=== PATIENT | male | born 1985 | race Caucasian/White ===

== ENCOUNTER 2020-01-23 00:17 | Emergency (ER) | payer SELFPAY ==
[2020-01-23] MEDS ORDERED: HYDROmorphone 0.5 MG/0.5 ML Syringe IVPUSH ONE ×2 (00:54→03:31)
[2020-01-23] MEDS ORDERED: Ondansetron 4 MG/2 ML SDV IVPUSH ONE ×2 (00:54→01:48)
--- NOTE | 2020-01-23 00:54 | EDM.PDOC ---
ED HPI GENERAL MEDICAL PROBLEM - General Chief Complaint: Abdominal Pain Stated Complaint: ABD PAIN Time Seen by Provider: 01/23/20 00:46 Source of Information: Reports: Patient History Limitations: Reports: No Limitations - History of Present Illness INITIAL COMMENTS - FREE TEXT/NARRATIVE: pt started to vomit on Sunday and at this point he is not holding anything down. He feels very dehydrated. He has not been having diarrhea. He has lower abdomanal pain. He has not had chilling. He feels very weak. He has not noted anything in the emesis like blood. Onset: Gradual, Other ( started on Sunday. ) Duration: Hour(s): Location: Reports: Abdomen Associated Symptoms: Reports: Loss of Appetite, Nausea/Vomiting, Weakness Abdominal Pain Score (Numeric/FACES): 7 - Related Data Allergies Allergy/AdvReac Type Severity Reaction Status Date / Time No Known Allergies Allergy Verified 09/18/13 20:12 Home Meds: Home Meds NK [No Known Home Meds] 09/18/13 [History] Past Medical History - Past Health History Medical/Surgical History: Denies Medical/Surgical History - Infectious Disease History Infectious Disease History: Reports: Chicken Pox Social & Family History - Tobacco Use Smoking Status *Q: Current Every Day Smoker Years of Tobacco use: 15 Packs/Tins Daily: 5 - Recreational Drug Use Recreational Drug Use: Yes Drug Use in Last 12 Months: Yes Recreational Drug Type: Reports: Marijuana/Hashish Recreational Drug Use Frequency: Daily ED ROS GENERAL - Review of Systems Review Of Systems: See Below Constitutional: Reports: Weakness, Decreased Appetite HEENT: Reports: No Symptoms Respiratory: Reports: No Symptoms Cardiovascular: Reports: No Symptoms Endocrine: Reports: No Symptoms GI/Abdominal: Reports: Abdominal Pain, Other (pt has pain in his lower abdoman. ) : Reports: No Symptoms Musculoskeletal: Reports: No Symptoms Skin: Reports: No Symptoms ED EXAM, GI/ABD - Physical Exam Exam: See Below Text/Narrative:: pt arrived with lower abdomanal pain. He has been vomiting since sunday and has not held anything down. He has not had diarrhea. He feels very weak. Exam Limited By: No Limitations General Appearance: Alert, Anxious, Moderate Distress Ears: Normal TMs Nose: Normal Inspection Throat/Mouth: Other (mouth is very dry. ) Head: Atraumatic Neck: Normal Inspection Respiratory/Chest: No Respiratory Distress Cardiovascular: Regular Rate, Rhythm GI/Abdominal Exam: Tender, Other (pt is tender in the rt lower abdoman and periumbilical area. ) (Male) Exam: Deferred Rectal (Males) Exam: Deferred Back Exam: Other (pt has itching on his back. ) Extremities: Normal Inspection Neurological: Alert, Oriented, Normal Cognition Psychiatric: Anxious Course - Vital Signs Last Recorded V/S: Last Vital Signs Temp 37.1 C 01/23/20 00:33 Pulse 61 01/23/20 03:13 Resp 17 01/23/20 03:13 BP 131/84 01/23/20 03:13 Pulse Ox 99 01/23/20 03:13 - Orders/Labs/Meds Orders: Active Orders 24 hr Category Date Time Status Abdomen 2V AP Flat Upright [CR] Stat Exams 01/23/20 03:31 Taken Sodium Chloride 0.9% [Normal Saline] 1,000 ml Med 01/23/20 01:00 Active IV ASDIRECTED Sodium Chloride 0.9% [Normal Saline] 1,000 ml Med 01/23/20 02:00 Active IV ASDIRECTED Sodium Chloride 0.9% [Normal Saline] 1,000 ml Med 01/23/20 02:30 Active IV ASDIRECTED Medication Orders Sodium Chloride (Normal Saline) 1,000 mls @ 999 mls/hr IV ASDIRECTED HERLINDA Last Admin: 01/23/20 00:59 Dose: 999 mls/hr Sodium Chloride (Normal Saline) 1,000 mls @ 999 mls/hr IV ASDIRECTED HERLINDA Last Admin: 01/23/20 01:54 Dose: 999 mls/hr Sodium Chloride (Normal Saline) 1,000 mls @ 999 mls/hr IV ASDIRECTED HERLINDA Last Admin: 01/23/20 02:45 Dose: 999 mls/hr Labs: Laboratory Tests 01/23/20 01/23/20 01/23/20 Range/Units 00:46 00:56 00:56 WBC 11.5 H (4.5-11.0) K/uL RBC 5.15 (4.30-5.90) M/uL Hgb 15.2 H (12.0-15.0) g/dL Hct 46.3 (40.0-54.0) % MCV 90 (80-98) fL MCH 30 (27-31) pg MCHC 33 (32-36) % Plt Count 518 H (150-400) K/uL Neut % (Auto) 81 H (36-66) % Lymph % (Auto) 12 L (24-44) % [place] % (Auto) 7 H (2-6) % Eos % (Auto) 0 L (2-4) % Baso % (Auto) 0 (0-1) % Sodium 140 (140-148) mmol/L Potassium 3.5 L (3.6-5.2) mmol/L Chloride 99 L (100-108) mmol/L Carbon Dioxide 32 (21-32) mmol/L Anion Gap 12.5 (5.0-14.0) mmol/L BUN 15 (7-18) mg/dL Creatinine 1.1 (0.8-1.3) mg/dL Est Cr Clr Drug Dosing 91.55 mL/min Estimated GFR (MDRD) > 60 (>60) Glucose 108 H (74-106) mg/dL Calcium 8.9 (8.5-10.1) mg/dL Total Bilirubin 0.5 (0.2-1.0) mg/dL AST 17 (15-37) U/L ALT 22 (12-78) U/L Alkaline Phosphatase 72 (46-116) U/L C-Reactive Protein 0.36 H (0.0-0.3) mg/dL Total Protein 7.5 (6.4-8.2) g/dL Albumin 4.1 (3.4-5.0) g/dL Globulin 3.4 (2.3-3.5) g/dL Albumin/Globulin Ratio 1.2 (1.2-2.2) Amylase (25-115) U/L Lipase (73-393) U/L Urine Color (YELLOW) Urine Appearance (CLEAR) Urine pH (5.0-8.0) Ur Specific [place] (1.008-1.030) Urine Protein (NEGATIVE) mg/dL Urine Glucose (UA) (NEGATIVE) mg/dL Urine Ketones (NEGATIVE) mg/dL Urine Occult Blood (NEGATIVE) Urine Nitrite (NEGATIVE) Urine Bilirubin (NEGATIVE) Urine Urobilinogen (0.2-1.0) EU/dL Ur Leukocyte Esterase (NEGATIVE) Urine RBC (0-5) Urine WBC (0-5) Ur Epithelial Cells Amorphous Sediment Urine Bacteria Urine Mucus 01/23/20 01/23/20 01/23/20 Range/Units 01:02 01:13 02:00 WBC (4.5-11.0) K/uL RBC (4.30-5.90) M/uL Hgb (12.0-15.0) g/dL Hct (40.0-54.0) % MCV (80-98) fL MCH (27-31) pg MCHC (32-36) % Plt Count (150-400) K/uL Neut % (Auto) (36-66) % Lymph % (Auto) (24-44) % [place] % (Auto) (2-6) % Eos % (Auto) (2-4) % Baso % (Auto) (0-1) % Sodium (140-148) mmol/L Potassium (3.6-5.2) mmol/L Chloride (100-108) mmol/L Carbon Dioxide (21-32) mmol/L Anion Gap (5.0-14.0) mmol/L BUN (7-18) mg/dL Creatinine (0.8-1.3) mg/dL Est Cr Clr Drug Dosing mL/min Estimated GFR (MDRD) (>60) Glucose (74-106) mg/dL Calcium (8.5-10.1) mg/dL Total Bilirubin (0.2-1.0) mg/dL AST (15-37) U/L ALT (12-78) U/L Alkaline Phosphatase (46-116) U/L C-Reactive Protein (0.0-0.3) mg/dL Total Protein (6.4-8.2) g/dL Albumin (3.4-5.0) g/dL Globulin (2.3-3.5) g/dL Albumin/Globulin Ratio (1.2-2.2) Amylase 55 (25-115) U/L Lipase 84 (73-393) U/L Urine Color Yellow (YELLOW) Urine Appearance Clear (CLEAR) Urine pH 7.5 (5.0-8.0) Ur Specific [place] 1.020 (1.008-1.030) Urine Protein 30 H (NEGATIVE) mg/dL Urine Glucose (UA) Negative (NEGATIVE) mg/dL Urine Ketones Negative (NEGATIVE) mg/dL Urine Occult Blood Negative (NEGATIVE) Urine Nitrite Negative (NEGATIVE) Urine Bilirubin Negative (NEGATIVE) Urine Urobilinogen 0.2 (0.2-1.0) EU/dL Ur Leukocyte Esterase Negative (NEGATIVE) Urine RBC 0-5 (0-5) Urine WBC 0-5 (0-5) Ur Epithelial Cells Not seen Amorphous Sediment Not seen Urine Bacteria Not seen Urine Mucus Moderate Meds: Medications Generic Name Dose Route Start Last Admin Trade Name Freq PRN Reason Stop Dose Admin Sodium Chloride 1,000 mls @ 999 mls/hr 01/23/20 01:00 01/23/20 00:59 Normal Saline IV 999 mls/hr ASDIRECTED HERLINDA Administration Sodium Chloride 1,000 mls @ 999 mls/hr 01/23/20 02:00 01/23/20 01:54 Normal Saline IV 999 mls/hr ASDIRECTED HERLINDA Administration Sodium Chloride 1,000 mls @ 999 mls/hr 01/23/20 02:30 01/23/20 02:45 Normal Saline IV 999 mls/hr ASDIRECTED HERLINDA Administration Discontinued Medications Generic Name Dose Route Start Last Admin Trade Name Freq PRN Reason Stop Dose Admin Al Hydroxide/Mg Hydroxide 15 0 ml 01/23/20 03:00 01/23/20 03:07 ml/ Lidocaine HCl 15 ml PO 01/23/20 03:01 30 ml ONETIME ONE Administration Famotidine 20 mg 01/23/20 02:01 01/23/20 02:06 Pepcid PO 01/23/20 02:02 20 mg ONETIME ONE Administration Hydromorphone HCl 0.5 mg 01/23/20 00:54 01/23/20 01:00 Dilaudid IVPUSH 01/23/20 00:55 0.5 mg ONETIME ONE Administration Hydromorphone HCl 0.5 mg 01/23/20 03:31 01/23/20 03:40 Dilaudid IVPUSH 01/23/20 03:32 0.5 mg ONETIME ONE Administration Lorazepam 0.5 mg 01/23/20 02:30 01/23/20 02:43 Ativan IVPUSH 01/23/20 02:31 0.5 mg ONETIME ONE Administration Ondansetron HCl 4 mg 01/23/20 00:54 01/23/20 00:59 Zofran IVPUSH 01/23/20 00:55 4 mg ONETIME ONE Administration Ondansetron HCl 4 mg 01/23/20 01:48 01/23/20 01:54 Zofran IVPUSH 01/23/20 01:49 4 mg ONETIME ONE Administration - Re-Assessments/Exams Free Text/Narrative Re-Assessment/Exam: 01/23/20 01:51 pt now tells me that he ate a fish sandwich from [employer] and then he took some tramodol for his ankle. He then took a bunch of advil which he thinks started the vomiting. He has a soft abdoman without guarding. He was given 2 liters of fluid and zoforan 8 mg. He is feeling better. He has a sprained ankle on the rt and that is getting better. His lab work shows a borderline wbc. His electrolytes show dehydration. He had a normal amylase and lipase. His crp is not sig elevated. 01/23/20 03:30 01/23/20 03:53 pt had a flat and upright of the abdoman which does not show dilated loops of bowel. He is passing gas. He has had 3 liters of fluid. He still has a very soft belly. Departure - Departure Time of Disposition: 03:54 Disposition: Home, Self-Care 01 Condition: Fair Clinical Impression: Dehydration, Flu syndrome - Discharge Information Referrals: PCP,None [Primary Care Provider] - Forms: ED Department Discharge Care Plan Goals: lite foods, crackers, yogurt, jello, push fluids, zoforan 4 mg subling as needed for nausea, pepcid 20mg bid. Sepsis Event Note - Evaluation Sepsis Screening Result: No Definite Risk - Focused Exam Vital Signs: Vital Signs Temp Pulse Resp BP Pulse Ox 01/23/20 03:13 61 17 131/84 99 01/23/20 00:33 37.1 C 65 17 141/94 H 99 01/23/20 00:32 37.1 C 65 17 141/94 H 99 Date Exam was Performed: 01/23/20 Time Exam was Performed: 03:53 - My Orders Last 24 Hours: My Active Orders 01/23/20 01:00 Sodium Chloride 0.9% [Normal Saline] 1,000 ml IV ASDIRECTED 01/23/20 02:00 Sodium Chloride 0.9% [Normal Saline] 1,000 ml IV ASDIRECTED 01/23/20 02:30 Sodium Chloride 0.9% [Normal Saline] 1,000 ml IV ASDIRECTED 01/23/20 03:31 Abdomen 2V AP Flat Upright [CR] Stat - Assessment/Plan Last 24 Hours: My Active Orders 01/23/20 01:00 Sodium Chloride 0.9% [Normal Saline] 1,000 ml IV ASDIRECTED 01/23/20 02:00 Sodium Chloride 0.9% [Normal Saline] 1,000 ml IV ASDIRECTED 01/23/20 02:30 Sodium Chloride 0.9% [Normal Saline] 1,000 ml IV ASDIRECTED 01/23/20 03:31 Abdomen 2V AP Flat Upright [CR] Stat
[2020-01-23] MEDS ORDERED: Sodium Chloride 0.9% 1,000 ML IV SCH ×3 (01:00→02:30)
[2020-01-23] MEDS ORDERED: Famotidine 20 MG Tab PO ONE (02:01)
[2020-01-23] MEDS ORDERED: LORazepam 2 MG/ML SDV IVPUSH ONE (02:30)
[2020-01-23] MEDS ORDERED: Alum Hydrox/Mag Hydrox/Simeth 15 ML, Lidocaine 2% 15 ML PO ONE ×2 (03:00)
--- NOTE | 2020-01-26 11:33 | CR ---
Abdomen 2V AP Flat Upright CLINICAL HISTORY: Abdominal pain FINDINGS: No free air is identified. There are some scattered air-filled loops of small bowel in a nonacute configuration. There is gas and feces throughout the colon. IMPRESSION: Nonacute intestinal gas pattern
== END 2020-01-23 04:06 | disposition home or self-care (01) ==
LOC: JP.ED 00:17
DX: E86.0 Dehydration (principal); J11.1 Influenza due to unidentified influenza virus with other respiratory manifestations; F17.210 Nicotine dependence, cigarettes, uncomplicated
CPT/HCPCS: 36415; 74019; 80053; 81001; 82150; 83690; 85025; 86140; 96361; 96374; 96375; 96376; 99284; A9270; J1170; J2060; J2405; J7030; 99283

== ENCOUNTER 2020-01-24 06:07 | Emergency (ER) | payer SELFPAY ==
[2020-01-24] MEDS ORDERED: Lactated Ringers 1,000 ML IV ONE (06:57)
[2020-01-24] MEDS ORDERED: Promethazine 25 MG in Sodium Chloride 0.9% 50 ML IV STA (07:00)
[2020-01-24] MEDS ORDERED: diphenhydrAMINE 50 MG/ML SDV IVPUSH ONE (07:02)
--- NOTE | 2020-01-24 07:15 | EDM.PDOC ---
ED HPI GENERAL MEDICAL PROBLEM - General Chief Complaint: Gastrointestinal Problem Stated Complaint: STOMACH PAIN Time Seen by Provider: 01/24/20 07:00 Source of Information: Reports: Patient, Old Records, RN History Limitations: Reports: No Limitations - History of Present Illness INITIAL COMMENTS - FREE TEXT/NARRATIVE: 34 yo male returns to the ER with diffuse mild abdominal pain and recurrent vomiting. He was seen earlier in the week at the clinic and later in our ER for this problem. When he was seen in the ER he had an extensive work up that really didn't show anything. He admits to being a daily marijuana user. He has not been seen for this same problem in an area anywhere until this week. There has not been a fever or blood in his emesis or stool. No known exposures. Initially thought this was from a fish sandwich he ate on Sunday, but sx's have not really abated since . Has been doing a lot of hot showers this week as he has noticed this gives him temporary relief. Onset: Gradual Onset Date: 01/19/20 Duration: Day(s):, Waxing/Waning Location: Reports: Abdomen Quality: Reports: Ache Severity: Moderate Improves with: Reports: None Worsens with: Reports: None Context: Reports: Other (See HPI) Associated Symptoms: Reports: Nausea/Vomiting. Denies: Fever/Chills Treatments [employer] MANAGER: Reports: Other (see below) (none today) ABDOMINAL Pain Score (Numeric/FACES): 6 - Related Data Allergies Allergy/AdvReac Type Severity Reaction Status Date / Time No Known Allergies Allergy Verified 09/18/13 20:12 Home Meds: Home Meds Promethazine [Phenadoz] 25 mg RECTAL QID PRN #10 supp 01/24/20 [Rx] Past Medical History - Past Health History Medical/Surgical History: Denies Medical/Surgical History - Infectious Disease History Infectious Disease History: Reports: Chicken Pox Social & Family History - Family History Family Medical History: Noncontributory - Tobacco Use Smoking Status *Q: Current Every Day Smoker Years of Tobacco use: 15 Packs/Tins Daily: 0.5 - Caffeine Use Caffeine Use: Reports: Coffee - Recreational Drug Use Recreational Drug Use: Yes Drug Use in Last 12 Months: Yes Recreational Drug Type: Reports: Marijuana/Hashish Recreational Drug Use Frequency: Daily ED ROS GENERAL - Review of Systems Review Of Systems: See Below Constitutional: Reports: Malaise HEENT: Reports: No Symptoms Respiratory: Reports: No Symptoms Cardiovascular: Reports: No Symptoms GI/Abdominal: Reports: Abdominal Pain, Anorexia, Nausea, Vomiting. Denies: Black Stool, Bloody Stool, Constipation, Diarrhea, Distension, Flatus, Hematemesis, Hematochezia, Melena : Reports: No Symptoms Musculoskeletal: Reports: No Symptoms Skin: Reports: No Symptoms Neurological: Reports: No Symptoms Psychiatric: Reports: No Symptoms ED EXAM, GI/ABD - Physical Exam Exam: See Below Exam Limited By: No Limitations General Appearance: Alert, WD/WN, No Apparent Distress Ears: Normal External Exam, Normal Canal, Hearing Grossly Normal, Normal TMs Nose: Normal Inspection, No Blood Throat/Mouth: Normal Inspection, Normal Lips, Normal Oropharynx, Normal Voice, No Airway Compromise Head: Atraumatic, Normocephalic Neck: Normal Inspection Respiratory/Chest: No Respiratory Distress, Lungs Clear, Normal Breath Sounds, No Accessory Muscle Use Cardiovascular: Regular Rate, Rhythm, No Edema GI/Abdominal Exam: Normal Bowel Sounds, Soft, No Distention, Tender (mild, diffuse). No: Non-Tender, Distended, Guarding, Rigid, Rebound, Abnormal Bowel Sounds Back Exam: Normal Inspection. No: CVA Tenderness (R), CVA Tenderness (L) Extremities: Normal Inspection, Normal Range of Motion, Non-Tender, No Pedal Edema Neurological: Alert, Oriented, CN II-XII Intact, Normal Cognition, No Motor/ Sensory Deficits Psychiatric: Normal Affect, Normal Mood Skin Exam: Warm, Dry, Intact, Erythema, Rash (to his back, there is a non- pustular rash with extensive excoriations, worse to the low/central back. ) Course - Vital Signs Last Recorded V/S: Last Vital Signs Temp 36.6 C 01/24/20 08:37 Pulse 50 L 01/24/20 08:37 Resp 16 01/24/20 08:37 BP 126/84 01/24/20 08:37 Pulse Ox 99 01/24/20 08:37 - Orders/Labs/Meds Orders: Active Orders 24 hr Category Date Time Status NS + KCl 20mEq/L [Normal Saline with 20 mEq KCl] 1,000 Med 01/24/20 08:30 Active ml IV ASDIRECTED Medication Orders Potassium Chloride/Sodium Chloride (Normal Saline With 20 Meq Kcl) 1,000 mls @ 1,000 mls/hr IV ASDIRECTED HERLINDA Last Admin: 01/24/20 09:04 Dose: 1,000 mls/hr Labs: Laboratory Tests 01/24/20 Range/Units 07:36 Urine Opiates Screen Negative (NEGATIVE) Ur Oxycodone Screen Presumptive positive H (NEGATIVE) Urine Methadone Screen Negative (NEGATIVE) Ur Propoxyphene Screen Negative (NEGATIVE) Ur Barbiturates Screen Negative (NEGATIVE) Ur Tricyclics Screen Negative (NEGATIVE) Ur Phencyclidine Scrn Negative (NEGATIVE) Ur Amphetamine Screen Negative (NEGATIVE) U Methamphetamines Scrn Negative (NEGATIVE) Urine MDMA Screen Negative (NEGATIVE) U Benzodiazepines Scrn Presumptive positive H (NEGATIVE) U Cocaine Metab Screen Negative (NEGATIVE) U Marijuana (THC) Screen Presumptive positive H (NEGATIVE) Meds: Medications Generic Name Dose Route Start Last Admin Trade Name Freq PRN Reason Stop Dose Admin Potassium Chloride/Sodium Chloride 1,000 mls @ 1,000 mls/hr 01/24/20 08:30 09:04 Normal Saline With 20 Meq Kcl IV 1,000 mls/hr ASDIRECTED HERLINDA Administration Discontinued Medications Generic Name Dose Route Start Last Admin Trade Name Freq PRN Reason Stop Dose Admin Acetaminophen 1,000 mg 01/24/20 10:04 Tylenol Extra Strength PO 01/24/20 10:05 ONETIME ONE Diphenhydramine HCl 25 mg 01/24/20 07:02 01/24/20 07:13 Benadryl IVPUSH 01/24/20 07:03 25 mg ONETIME ONE Administration Haloperidol Lactate 5 mg 01/24/20 08:13 01/24/20 08:23 Haldol IVPUSH 01/24/20 08:14 5 mg ONETIME ONE Administration Haloperidol Lactate 2.5 mg 01/24/20 10:06 01/24/20 10:16 Haldol IVPUSH 01/24/20 10:07 2.5 mg ONETIME ONE Administration Lactated Ringer's 1,000 mls @ 1,000 mls/hr 01/24/20 06:57 01/24/20 07:12 Ringers, Lactated IV 01/24/20 07:56 1,000 mls/hr BOLUS ONE Administration Promethazine HCl 25 mg/ Sodium 51 mls @ 200 mls/hr 01/24/20 07:00 01/24/20 07 :18 Chloride IV 01/24/20 07:15 200 mls/hr NOW STA Administration Ketorolac Tromethamine 30 mg 01/24/20 08:03 01/24/20 08:10 Toradol IVPUSH 01/24/20 08:04 30 mg ONETIME ONE Administration - Re-Assessments/Exams Free Text/Narrative Re-Assessment/Exam: 01/24/20 10:08 FORRESTER and nausea gone. Still complaining of abdominal pain. Will try acetaminophen 1000 mg po and Haldol 2.5 mg IV additional. Departure - Departure Time of Disposition: 10:55 Disposition: Home, Self-Care 01 Condition: Fair Clinical Impression: Cannabinoid hyperemesis syndrome, Marijuana smoker, continuous - Discharge Information *PRESCRIPTION DRUG MONITORING PROGRAM REVIEWED*: No *COPY OF PRESCRIPTION DRUG MONITORING REPORT IN PATIENT MAEVE: No Prescriptions: Promethazine [Phenadoz] 25 mg RECTAL QID PRN #10 supp PRN Reason: Nausea Instructions: Cannabinoid Hyperemesis Syndrome Referrals: PCP,None [Primary Care Provider] - Forms: ED Department Discharge Additional Instructions: Use promethazine suppositories as needed for nausea and abdominal pain relief. Completely avoid use of any marijuana products going forward, over time if you are successful in avoiding this your condition may stay away. Add acetaminophen up to 1000 mg every 6 hrs for pain relief as needed. Continue the famotidine prescribed to you by Dr. Santos during your last ER visit. Follow up with your provider for recheck next week. Avoid driving today due to the sedative affects of meds given in the ER today. Sepsis Event Note - Evaluation Sepsis Screening Result: No Definite Risk - Focused Exam Vital Signs: Vital Signs Temp Pulse Resp BP Pulse Ox 01/24/20 08:37 36.6 C 50 L 16 126/84 99 01/24/20 06:41 62 16 140/87 99 Date Exam was Performed: 01/24/20 Time Exam was Performed: 10:45 - My Orders Last 24 Hours: My Active Orders 01/24/20 08:30 NS + KCl 20mEq/L [Normal Saline with 20 mEq KCl] 1,000 ml IV ASDIRECTED - Assessment/Plan Last 24 Hours: My Active Orders 01/24/20 08:30 NS + KCl 20mEq/L [Normal Saline with 20 mEq KCl] 1,000 ml IV ASDIRECTED
[2020-01-24] MEDS ORDERED: Ketorolac 30 MG/ML SDV IVPUSH ONE (08:03)
[2020-01-24] MEDS ORDERED: Haloperidol Lactate 5 MG/ML SDV IVPUSH ONE ×2 (08:13→10:06)
[2020-01-24] MEDS ORDERED: NS + KCl 20mEq/L 1,000 ML IV SCH (08:30)
[2020-01-24] MEDS ORDERED: Acetaminophen 500 MG Tab PO ONE (10:04)
== END 2020-01-24 11:00 | disposition home or self-care (01) ==
LOC: JP.ED 06:07
DX: F12.188 Cannabis abuse with other cannabis-induced disorder (principal); F17.210 Nicotine dependence, cigarettes, uncomplicated
CPT/HCPCS: 80305; 96361; 96374; 96375; 96376; 99284; J1200; J1630; J1885; J2550; J3480; J7050; J7120

== ENCOUNTER 2021-02-25 20:01 | Emergency (ER) | payer SELFPAY ==
[2021-02-25] MEDS ORDERED: Ondansetron 4 MG/2 ML SDV IVPUSH ONE (20:31)
[2021-02-25] MEDS ORDERED: Ketorolac 30 MG/ML SDV IVPUSH ONE (20:31)
[2021-02-25] MEDS ORDERED: Pantoprazole 40 MG Vial IVPUSH ONE (20:31)
[2021-02-25] MEDS ORDERED: Sodium Chloride 0.9% 10 ML Syringe FLUSH PRN (20:36)
--- NOTE | 2021-02-25 20:38 | EDM.PDOC ---
ED HPI GENERAL MEDICAL PROBLEM - General Chief Complaint: Abdominal Pain Stated Complaint: STOMACH PAIN , VOMITING Time Seen by Provider: 02/25/21 20:12 Source of Information: Reports: Patient History Limitations: Reports: No Limitations - History of Present Illness INITIAL COMMENTS - FREE TEXT/NARRATIVE: Senthil is a 36-year-old male presenting to the ED for evaluation of epigastric abdominal pain and intractable vomiting for the last 4 days. Patient states that his symptoms started on Sunday and has been unable to keep anything down since the onset of symptoms. 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 Patient does admit to smoking marijuana on Sunday but has not been able to do that due to the vomiting since. He does get relief by taking hot showers which she has been doing several times a day. He has not been able to keep anything down in the way of fluids or solids since Sunday. He has tried Pedialyte and water without success. Today he was in the shower and tried to pass some flatus causing in diarrheal bowel movement in the shower. Patient reportedly is on no medications at this time. He is complaining of severe epigastric discomfort and has had streaks of blood in his emesis. He denies any fever, chills, cough or shortness of breath, chest pain or back pain, urinary symptoms including urgency, frequency, burning with urination, lightheadedness or dizziness. He has had a diminished appetite secondary to the vomiting. Abdomen Pain Score (Numeric/FACES): 5 - Related Data Allergies Allergy/AdvReac Type Severity Reaction Status Date / Time No Known Allergies Allergy Verified 02/25/21 20:23 Home Meds: Home Meds Promethazine [Phenadoz] 25 mg RECTAL Q6H PRN #10 supp 02/25/21 [Rx] Sucralfate [Carafate] 1 gm PO Q6HR #120 tab 02/25/21 [Rx] Past Medical History - Past Health History Medical/Surgical History: Denies Medical/Surgical History - Infectious Disease History Infectious Disease History: Reports: Chicken Pox Social & Family History - Family History Family Medical History: No Pertinent Family History - Tobacco Use Tobacco Use Status *Q: Current Every Day Tobacco User Years of Tobacco use: 15 Packs/Tins Daily: 1 - Caffeine Use Caffeine Use: Reports: Coffee, Energy Drinks, Soda - Recreational Drug Use Recreational Drug Use: Yes Recreational Drug Type: Reports: Marijuana/Hashish ED ROS GENERAL - Review of Systems Review Of Systems: See Below Constitutional: Reports: Diaphoresis, Decreased Appetite HEENT: Reports: No Symptoms Respiratory: Reports: No Symptoms Cardiovascular: Reports: No Symptoms Endocrine: Reports: No Symptoms GI/Abdominal: Reports: Abdominal Pain (Epigastric), Diarrhea (1 episode while in the shower today), Decreased Appetite, Hematemesis (Weeks of blood in the emesis), Nausea, Vomiting (Intractable) : Reports: No Symptoms Musculoskeletal: Reports: No Symptoms Skin: Reports: No Symptoms Neurological: Reports: No Symptoms Psychiatric: Reports: No Symptoms Hematologic/Lymphatic: Reports: No Symptoms Immunologic: Reports: No Symptoms ED EXAM, GI/ABD - Physical Exam Exam: See Below Exam Limited By: No Limitations General Appearance: Alert, No Apparent Distress, Anxious, Moderate Distress Eyes: Bilateral: EOMI Throat/Mouth: Normal Voice, No Airway Compromise, Other (Dry mucous membrane, blackness on the tongue secondary to vomiting Pepto-Bismol) Head: Atraumatic, Normocephalic Neck: Normal Inspection, Supple, Non-Tender, Full Range of Motion Respiratory/Chest: No Respiratory Distress, Lungs Clear, Normal Breath Sounds Cardiovascular: Normal Peripheral Pulses, Regular Rate, Rhythm, No Murmur, Tachycardia GI/Abdominal Exam: Guarding (Epigastric tenderness to palpation mild guarding in the epigastric region), Tender, Abnormal Bowel Sounds (Diminished bowel sounds). No: Rigid, Rebound, Hepatomegaly, Splenomegaly Extremities: Normal Inspection, Normal Range of Motion Neurological: Alert, Oriented, Normal Cognition, No Motor/Sensory Deficits Psychiatric: Normal Affect, Normal Mood Skin Exam: Warm, Dry Lymphatic: No Adenopathy Course - Vital Signs Last Recorded V/S: Last Vital Signs Temp 35.3 C L 02/25/21 20:22 Pulse 78 02/25/21 20:22 Resp 18 02/25/21 20:22 BP 159/93 H 02/25/21 20:22 Pulse Ox 100 02/25/21 20:22 - Orders/Labs/Meds Orders: Active Orders 24 hr Category Date Time Status Lactated Ringers [Ringers, Lactated] 1,000 ml Med 02/25/21 20:45 Active IV ASDIRECTED Sodium Chloride 0.9% [Saline Flush] Med 02/25/21 20:36 Active 10 ml FLUSH ASDIRECTED PRN Saline Lock Insert [OM.PC] Routine Oth 02/25/21 20:36 Ordered Medication Orders Lactated Ringer's (Ringers, Lactated) 1,000 mls @ 999 mls/hr IV ASDIRECTED HERLINDA Last Admin: 02/25/21 20:49 Dose: 999 mls/hr Documented by: FANY Sodium Chloride (Sodium Chloride 0.9% 10 Ml Syringe) 10 ml FLUSH ASDIRECTED PRN PRN Reason: Keep Vein Open Last Admin: 02/25/21 20:49 Dose: 10 ml Documented by: FANY Labs: Laboratory Tests 02/25/21 02/25/21 Range/Units 20:23 20:23 WBC 9.5 (4.5-11.0) K/uL RBC 5.15 (4.30-5.90) M/uL Hgb 15.2 H (12.0-15.0) g/dL Hct 45.4 (40.0-54.0) % MCV 88 (80-98) fL MCH 30 (27-31) pg MCHC 34 (32-36) % Plt Count 427 H (150-400) K/uL Neut % (Auto) 76.4 H (36-66) % Lymph % (Auto) 14.8 L (24-44) % [place] % (Auto) 8.1 H (2-6) % Eos % (Auto) 0.1 L (2-4) % Baso % (Auto) 0.6 (0-1) % Sodium 143 (140-148) mmol/L Potassium 3.5 L (3.6-5.2) mmol/L Chloride 98 L (100-108) mmol/L Carbon Dioxide 28 (21-32) mmol/L Anion Gap 20.5 H (5.0-14.0) mmol/L BUN 17 (7-18) mg/dL Creatinine 1.3 (0.8-1.3) mg/dL Est Cr Clr Drug Dosing 73.44 mL/min Estimated GFR (MDRD) > 60 (>60) Glucose 95 (74-106) mg/dL Calcium 9.6 (8.5-10.1) mg/dL Total Bilirubin 0.6 (0.2-1.0) mg/dL AST 18 (15-37) U/L ALT 18 (12-78) U/L Alkaline Phosphatase 70 (46-116) U/L C-Reactive Protein 0.22 (0.0-0.3) mg/dL Total Protein 7.8 (6.4-8.2) g/dL Albumin 4.5 (3.4-5.0) g/dL Globulin 3.3 (2.3-3.5) g/dL Albumin/Globulin Ratio 1.4 (1.2-2.2) Lipase 191 (73-393) U/L Meds: Medications Generic Name Dose Route Start Last Admin Trade Name [place] PRN Reason Stop Dose Admin Lactated Ringer's 1,000 mls @ 999 mls/hr 02/25/21 20:45 02/25/21 20:49 Ringers, Lactated IV 999 mls/hr ASDIRECTED HERLINDA Administration Sodium Chloride 10 ml 02/25/21 20:36 02/25/21 20:49 Sodium Chloride 0.9% 10 Ml Syringe FLUSH 10 ml ASDIRECTED PRN Administration Keep Vein Open Discontinued Medications Generic Name Dose Route Start Last Admin Trade Name Freq PRN Reason Stop Dose Admin Capsaicin 1 gm 02/25/21 22:09 02/25/21 22:23 Capsaicin 0.025% Crm 60 Gm Tube TOP 02/25/21 22:10 1 gram ONETIME STA Administration Fentanyl 100 mcg 02/25/21 22:07 02/25/21 22:26 Fentanyl 100 Mcg/2 Ml Sdv IVPUSH 02/25/21 22:08 100 mcg ONETIME ONE Administration Ketorolac Tromethamine 30 mg 02/25/21 20:31 02/25/21 20:49 Ketorolac 30 Mg/Ml Sdv IVPUSH 02/25/21 20:32 30 mg ONETIME ONE Administration Ondansetron HCl 8 mg 02/25/21 20:31 02/25/21 20:49 Ondansetron 4 Mg/2 Ml Sdv IVPUSH 02/25/21 20:32 8 mg ONETIME ONE Administration Pantoprazole Sodium 40 mg 02/25/21 20:31 02/25/21 20:49 Pantoprazole 40 Mg Vial IVPUSH 02/25/21 20:32 40 mg ONETIME ONE Administration Promethazine HCl 12.5 mg 02/25/21 22:47 02/25/21 23:02 Promethazine 25 Mg/Ml Sdv IM 02/25/21 22:48 12.5 mg ONETIME STA Administration Sucralfate 1 gm 02/25/21 22:57 02/25/21 23:02 Sucralfate 1 Gm Tab PO 02/25/21 22:58 1 gm ONETIME ONE Administration - Re-Assessments/Exams Free Text/Narrative Re-Assessment/Exam: 02/25/21 22:58 I reviewed the patient's labs including a CBC, comprehensive metabolic panel, CRP, and lipase. There is no significant abnormalities in any of these to account for his intractable vomiting. Moreover, with his history of cannabis induced cyclic vomiting it is likely a recurrence of this. We did discuss this and a printed information for the patient's mother concerning this. My recommendation is prolonged abstinence from cannabis to see if this helps improve things. The patient may apply capsaicin to the abdomen at onset of symptoms. We will also send him home with a prescription for Carafate to allow for healing of the stomach and promethazine suppository should he have recurrence of the vomiting. At this time, the patient is suitable for discharge home as there is not much else will be able to do for him. He should take frequent small amounts of fluids to prevent dehydration. Indications return to the ED were discussed and all questions were answered. Departure - Departure Time of Disposition: 23:08 Disposition: Home, Self-Care 01 Clinical Impression: Cannabinoid hyperemesis syndrome - Discharge Information Prescriptions: Sucralfate [Carafate] 1 gm PO Q6HR #120 tab Promethazine [Phenadoz] 25 mg RECTAL Q6H PRN #10 supp PRN Reason: Nausea/Vomiting Instructions: Vomiting, Adult Referrals: PCP,None [Primary Care Provider] - Forms: ED Department Discharge Care Plan Goals: Your work-up today has shown no significant abnormalities of your labs to account for your intractable vomiting. As discussed before, this is likely cannabinoid hyperemesis syndrome resulting from ongoing cannabis use causing changes to your brain which triggers this intractable vomiting. The treatment for this is prolonged abstinence from smoking cannabis. At the onset of symptoms you can apply capsaicin cream to your abdomen which may help reduce the degree of symptoms. We are sending you home with a prescription for Carafate which is a medication that helps coat the stomach and allows it to heal. We are also sending you home with Phenergan suppositories to control your nausea and vomiting. I would rehydrate with frequent small amounts of fluids kept at room temperature as these are less likely to result in your repeated vomiting. It will take time for your stomach to heal before your pain goes away. Follow-up with your primary care doctor if interested in cessation programs for cannabis use. Sepsis Event Note (ED) - Evaluation Sepsis Screening Result: No Definite Risk - Focused Exam Vital Signs: Vital Signs Temp Pulse Resp BP Pulse Ox 02/25/21 20:22 35.3 C L 78 18 159/93 H 100 02/25/21 20:13 35.3 C L 78 18 159/93 H 100 - Problem List & Annotations (1) Cannabinoid hyperemesis syndrome SNOMED Code(s): 949456975 Code(s): R11.2 - NAUSEA WITH VOMITING, UNSPECIFIED; F12.90 - CANNABIS USE, UNSPECIFIED, UNCOMPLICATED Status: Acute Priority: High Current Visit: Yes (2) Marijuana smoker, continuous SNOMED Code(s): 79093442 Code(s): F12.90 - CANNABIS USE, UNSPECIFIED, UNCOMPLICATED Status: Chronic Priority: Medium Current Visit: No - Problem List Review Problem List Initiated/Reviewed/Updated: Yes - My Orders Last 24 Hours: My Active Orders 02/25/21 20:36 Sodium Chloride 0.9% [Saline Flush] 10 ml FLUSH ASDIRECTED PRN Saline Lock Insert [OM.PC] Routine 02/25/21 20:45 Lactated Ringers [Ringers, Lactated] 1,000 ml IV ASDIRECTED - Assessment/Plan Last 24 Hours: My Active Orders 02/25/21 20:36 Sodium Chloride 0.9% [Saline Flush] 10 ml FLUSH ASDIRECTED PRN Saline Lock Insert [OM.PC] Routine 02/25/21 20:45 Lactated Ringers [Ringers, Lactated] 1,000 ml IV ASDIRECTED
[2021-02-25] MEDS ORDERED: Lactated Ringers 1,000 ML IV SCH (20:45)
[2021-02-25] MEDS ORDERED: fentaNYL 100 MCG/2 ML SDV IVPUSH ONE (22:07)
[2021-02-25] MEDS ORDERED: Capsaicin 0.025% Crm 60 GM Tube TOP STA (22:09)
[2021-02-25] MEDS ORDERED: Promethazine 25 MG/ML SDV IM STA (22:47)
[2021-02-25] MEDS ORDERED: Sucralfate 1 GM Tab PO ONE (22:57)
== END 2021-02-25 23:17 | disposition home or self-care (01) ==
LOC: JP.ED 20:01
DX: R11.11 Vomiting without nausea (principal); Z72.0 Tobacco use
CPT/HCPCS: 36415; 80053; 82271; 83690; 85025; 86140; 96372; 96374; 96375; 99284; A9270; C9113; J1885; J2405; J2550; J3010; J7120